=== PATIENT | female | born 1955 | race Hispanic/Latino ===

== ENCOUNTER 2016-11-22 13:07 | Outpatient (CLI) | payer OTHER ==
--- NOTE | 2016-11-22 15:43 | Mammography Report ---
BILATERAL DIGITAL SCREENING MAMMOGRAM with CAD: 11/22/16 13:07:00 CLINICAL: Routine screening. COMPARISON:08/02/15 and 05/09/14 FINDINGS: The breasts are heterogeneously dense, which may obscure small masses. No mass, architectural distortion or suspicious calcifications. IMPRESSION: No mammographic evidence of malignancy. BI-RADS CATEGORY: 1 - - Negative RECOMMENDATION: Routine mammographic screening in one year. COMMENT: Patient follow-up letters are generated by our [employer] application.
== END 2016-11-22 13:08 | disposition home or self-care (01) ==
LOC: SPVWC 13:07
DX: Z12.31 Encounter for screening mammogram for malignant neoplasm of breast (principal)
CPT/HCPCS: 77067; G0202

== ENCOUNTER 2018-01-06 14:24 | Outpatient (CLI) | payer OTHER ==
--- NOTE | 2018-01-07 08:59 | Mammography Report ---
BILATERAL MAMMOGRAM: FINDINGS: The breast tissue is heterogeneously dense, which could obscure detection of small masses (approximately 50%-75% glandular). No mass, distortion, suspicious calcification, or skin change is seen. No interval change when compared to prior exam in October 2016. CAD was not captured. IMPRESSION: Negative mammogram. There is no mammographic evidence of malignancy. RECOMMENDATION: Follow-up per ACS guidelines. BI-RADS CATEGORY: 1 = Negative ACR BI-RADS MAMMOGRAPHIC CODES: 0 = Needs additional imaging evaluation; 1 = Negative; 2 = Benign; 3 = Probably benign; 4 = Suspicious; 5 = Malignant; 6 = Known biopsy-proven malignancy COMMENT: 1. Dense breast tissue, i.e., adenosis, fibrocystic changes, etc., may obscure an underlying neoplasm. 2. Approximately 10% of cancers are not detected with mammography. 3. A negative mammography report should not delay biopsy if a clinically suspicious mass is present. COMMENT: Patient follow-up letters are generated in [employer].
== END 2018-01-06 14:25 | disposition home or self-care (01) ==
LOC: SPVWC 14:24
DX: Z12.31 Encounter for screening mammogram for malignant neoplasm of breast (principal)
CPT/HCPCS: 77067

== ENCOUNTER 2019-02-03 14:32 | Outpatient (CLI) | payer OTHER, MEDICARE ==
--- NOTE | 2019-02-03 16:07 | Mammography Report ---
DIGITAL SCREENING MAMMOGRAM WITH CAD, 02/03/2019 INDICATION: Routine screening mammography. TECHNIQUE: Digital bilateral 2D mammography was obtained in the craniocaudal and mediolateral obliq ue projections. This examination was interpreted with the benefit of Computer-Aided Detection analysi s. COMPARISON: 08/02/2015 FINDINGS: Breast Density: The breasts are heterogeneously dense, which may obscure small masses. There is no evidence of dominant mass, suspicious calcifications or architectural distortion in eithe r breast. No interval change. IMPRESSION: No evidence of malignancy. BI-RADS Category 1: Negative. No mammographic evidence of malignancy. Recommend routine screening m ammography in one year. A "normal" or negative report should not discourage follow up or biopsy of a clinically significant f inding. A written summary of these findings will be mailed to the patient. The patient will be entered into a mammography reporting system which will generate a reminder letter for the patient's next appointmen t at the appropriate interval. The [employer] recommends yearly mammograms starting at age 40 and continuing as l alanis as a woman is in good health. Breast MRI is recommended for women with an approximate 20-25% or greater lifetime risk of breast cancer, including women with a strong family history of breast or ova karoline cancer or who have been treated for Hodgkin's disease. Signer Name: Heather Gongora MD Signed: 02/03/2019 4:03 PM Workstation Name: [id number]
== END 2019-02-03 14:33 | disposition home or self-care (01) ==
LOC: SPVWC 14:32
DX: Z12.31 Encounter for screening mammogram for malignant neoplasm of breast (principal)
CPT/HCPCS: 77067

== ENCOUNTER 2019-05-05 14:11 | Outpatient (CLI) | payer OTHER, MEDICARE ==
--- NOTE | 2019-05-06 11:49 | Mammography Report ---
BONE DEXA CLINICAL: Postmenopausal COMPARISON: 05/07/2013 TECHNIQUE: 3 site bone DEXA performed on an Hologic scanner. FINDINGS: The average BMD of the lumbar spine L1-L4 is 0.975g/cm squared with a T score of -0.7 and a Z score o f +1.2. This compares to 1.052g/cm squared on the last exam and represents a -7.3 % change from the [ previous baseline]. The average BMD of the left hip is 0.771 g/cm squared with a T score of -1.4and a Z score of -0.1. Th is compares to 0.787 g/cm squared on the last exam and represents a -2.1 % change from the [previous baseline]. The left femoral neck BMD is 0.592 g/cm squared with a T score of -2.3 and a Z score of -0.8. IMPRESSION: 1. WHO classification: Normal with average fracture risk based on spine and total left hip measuremen ts. 2. WHO classification Osteopenia with increased fracture risk based on left femoral neck measurements . 3. A moderate decline in spine BMD and a modest decline in hip BMD compared to the previous exam. RECOMMENDATION: Clinical correlation and routine screening. Definitions: BMD equal bone mineral density T score = BMD related to peak bone mass of young adult (Julissa expressed an standard deviation) Z score = age-matched BMD expressed in SD World health organization (WHO) diagnostic criteria Normal T score greater than equal to 1 standard deviation Osteopenia T score between -1 and -2.4 standard deviation Osteoporosis T score -2.5 standard deviation or below. Note: BMD is not the only risk factor for fracture; also consider factors such as the patient's age, risk of falling, previous osteoporotic fracture, family history of osteoporotic fractures, current sm oker and low body weight. Z scores are not calculated if greater than 80 years of age. Signer Name: Zeus Ferreira MD Signed: 05/06/2019 11:45 AM Workstation Name: [id number]
== END 2019-05-05 14:12 | disposition home or self-care (01) ==
LOC: SPVWC 14:11
DX: M85.80 Other specified disorders of bone density and structure, unspecified site (principal); Z78.0 Asymptomatic menopausal state
CPT/HCPCS: 77080